=== PATIENT | female | born 2000 | race Caucasian/White ===

== ENCOUNTER 2018-04-13 10:13 | Emergency (ER) | payer MEDICAID, OTHER ==
[~2018-04-13] VITALS: Ht 172.7 cm; Wt 63.0 kg
[~2018-04-13 10:13] MED LIST: FLUC100T PO; SULF1TAB24 PO
[2018-04-13 10:16] VITALS: BP 125/69
== END 2018-04-13 10:55 | disposition home or self-care (01) ==
LOC: ED 10:15
DX: B34.9 Viral infection, unspecified (principal); J45.909 Unspecified asthma, uncomplicated; K21.9 Gastro-esophageal reflux disease without esophagitis; Z87.891 Personal history of nicotine dependence
CPT/HCPCS: 99283

== ENCOUNTER 2019-03-25 17:06 | Emergency (ER) | payer SELFPAY ==
[~2019-03-25] VITALS: Ht 170.2 cm; Wt 62.3 kg
[2019-03-25 17:13] VITALS: BP 105/62
[2019-03-25] MEDS ORDERED: HYDROcodone/APAP 5/325 TABLET ONE (17:40)
[2019-03-25] MEDS ORDERED: HYDROcodone/APAP 5/325 TABLET PO ONE (18:00)
== END 2019-03-25 17:48 | disposition home or self-care (01) ==
LOC: ED 17:39
DX: K08.89 Other specified disorders of teeth and supporting structures (principal); J45.909 Unspecified asthma, uncomplicated; Z88.5 Allergy status to narcotic agent
CPT/HCPCS: 99283